=== PATIENT | male | born 1980 | race Caucasian/White ===

== ENCOUNTER 2023-11-11 18:41 | Emergency (ER) | payer OTHER, SELFPAY ==
[2023-11-11] VITALS (27 sets, daily range): BP systolic 96–170; BP diastolic 61–120; PULSE 66–86; RESP 3–27; TEMP 36.9; O2SAT 94–100; BMI 34.4
--- NOTE | 2023-11-11 18:52 | ED.CHESTPAI1 ---
HPI - Chest Pain General Chief Complaint: Chest Pain Stated Complaint: Chest Pain Time Seen by Provider: 11/11/23 18:48 Source: patient Mode of arrival: walk-in Limitations: no limitations History of Present Illness HPI narrative: This patient is here complaining of chest pain. He says it was worse on the ride to the hospital and not quite as bad now when I was interviewing him. It started around 230 3:00. He is known to have metabolic syndrome. He has never had heart attack or chest pain before. No history of heart catheterization or stress testing. He had some vomiting at home. He does not have any abdominal discomfort. He thought initially he had acid reflux but he has never had discomfort like this before. Does also have some aching in his right shoulder. No radiation of pain to his neck jaw or left arm. Patient was seen immediately on arrival by myself with EKG done. Related Data Allergies Allergy/AdvReac Type Severity Reaction Status Date / Time naproxen AdvReac Mild Verified 11/11/23 18:45 Exam Narrative Exam Narrative: Awake alert oriented x 3. vital Signs are stable he is afebrile. No respiratory distress, normal pulse oximetry. Heart rate 78. He states he has never had previous EKG. A stat EKG here shows possible injury pattern On auscultation I do not hear a heart murmur or S3 or gallop. On auscultation lungs are clear with no wheeze rales or rhonchi. Abdomen is soft and nontender with no symptoms. His extremities do not show any swelling or edema. Neurological examination normal cognition and mental status. Constitutional Vital Signs, click to edit/add: Last Vital Signs Temp 98.5 F 11/11/23 18:45 Pulse 83 11/11/23 18:45 Resp 20 11/11/23 18:45 Pulse Ox 97 11/11/23 18:45 O2 Del Method Room Air 11/11/23 18:45 Course Vital Signs Vital signs: Vital Signs Temperature 98.5 F 11/11/23 18:45 Pulse Rate 83 11/11/23 18:45 Respiratory Rate 20 11/11/23 18:45 Pulse Oximetry 97 11/11/23 18:45 Oxygen Delivery Method Room Air 11/11/23 18:45 Temperature 98.5 F 11/11/23 18:45 Pulse Rate 83 11/11/23 18:45 Respiratory Rate 20 03/26/24 18:45 Pulse Oximetry 97 11/11/23 18:45 Oxygen Delivery Method Room Air 11/11/23 18:45 MDM - Chest Pain MDM Narrative Medical decision making narrative: The patient was seen immediately on arrival. Because of the abnormalities on EKG he will be given aspirin and started on a heparin drip. The EKG was faxed by myself to the research affiliate at [facility]. Heart Score History: Highly Suspicious ECG: Sign. ST Depression Age: <45 years Risk Factors: >3 Risk Factors/ HX of CAD:2 Discharge Plan Discharge Chief Complaint: Chest Pain Clinical Impression: ST elevation (STEMI) myocardial infarction Patient Disposition: [facility] Time of Disposition Decision: 19:00 Mode of Transportation: EMS Print Language: [place] Island[place] Referrals: CHRISTA SPRAGUE [Primary Care Provider] - 1 week
--- NOTE | 2023-11-11 18:55 | XR_ITS ---
The [address] [address] Patient Name: THEE MELENDEZ MRN: [id number] date: 1980 Sex: M Assigned Patient Location: ER Current Patient Location: ED.MAIN Accession/Order Number: [id number] Exam Date: 11/11/2023 19:15 Report Date: 11/11/2023 19:55 At the request of: ANGELO MELÉNDEZ Procedure: XR chest 1V EXAM: XR chest 1V HISTORY: Chest pain COMPARISON: None. TECHNIQUE: AP upright chest x-ray. FINDINGS: Lungs are clear with out infiltrate or edema. Heart size borderline accentuated by magnification. No pleural effusion or pneumothorax. XR/XR chest 1V IMPRESSION: No acute findings, clear lungs. Cardiac silhouette accentuated by magnification. Electronically authenticated by: JO REYNAGA Date: 11/11/2023 19:55
--- NOTE | 2023-11-11 18:55 | ECG_ITS ---
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
[2023-11-11] MEDS: ASPIRIN 81 MG TAB.CHEW 162 MG PO (19:03)
[2023-11-11 19:05] LABS: Basophils Absolute Auto 0.1 10^3/uL (0.0-0.1); Basophils Percent Auto 0.7 % (0.2-2.0); Eosinophils Absolute Auto 0.2 10^3/uL (0.0-0.7); Eosinophils Percent Auto 2.5 % (0.9-7.0); Hematocrit 48.2 % (42.0-54.0); Hemoglobin 16.7 g/dL (14.0-18.0); Immature Granulocytes Abs Auto 0.02 10^3/uL (0.00-0.03); Immature Granulocytes Pct Auto 0.2 % (0.0-0.5); Lymphocytes Absolute Auto 4.7 10^3/uL (1.2-3.8); Lymphocytes Percent Auto 48.2 % (20.5-60.0); Mean Corpuscular HGB Conc 34.6 g/dL (29.9-35.2); Mean Corpuscular Hemoglobin 31.2 pg (25.9-34.0); Mean Corpuscular Volume 89.9 fL (80.0-94.0); Monocytes Absolute Auto 0.6 10^3/uL (0.3-0.8); Neutrophils Absolute Auto 4.1 10^3/uL (1.4-6.5); Neutrophils Percent Auto 42.4 % (43.0-75.0); Platelet Count 250 10^3/uL (150-450); Red Blood Count 5.36 10^6/uL (4.70-6.10); Red Cell Distribution Width 12.4 % (11.0-15.0); White Blood Count 9.7 10^3/uL (4.0-11.0)
[2023-11-11] MEDS: HEPARIN SODIUM,PORCINE/D5W 25,000 UNIT/500 ML IV.SOLN 20 UNIT IV (19:08)
[2023-11-11] MEDS: HEPARIN SODIUM (PORCINE) 5,000 UNIT/ML VIAL 4000 UNIT IV (19:08)
[2023-11-11 19:22] LABS: INR 0.96; Prothrombin Time 10.2 sec (9.0-11.6)
[2023-11-11 19:26] LABS: Anion Gap 14.3
[2023-11-11 19:33] LABS: Alanine Aminotransferase 20 U/L (16-63); Albumin Globulin Ratio 1.1; Albumin Level 3.9 g/dL (3.4-5.0); Alkaline Phosphatase 63 U/L (46-116); Aspartate Amino Transferase 17 U/L (15-37); BUN Creatinine Ratio 14.4; Bilirubin Total 0.3 mg/dL (0.2-1.0); Calcium 8.9 mg/dL (8.5-10.1); Carbon Dioxide 24.6 mmol/L (21.0-32.0); Chloride 98 mmol/L (98-107); Estimated GFR (African America >60 (>=60); Estimated GFR (Non-African Ame >60 (>=60); Globulin 3.4 g/dL; Glucose 247 mg/dL (74-106); Potassium 3.9 mmol/L (3.5-5.1); Sodium 133 mmol/L (136-145); Total Protein 7.3 g/dL (6.4-8.2)
--- NOTE | 2023-11-11 19:33 | ECG_ITS ---
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
[2023-11-11] MEDS: TICAGRELOR 90 MG TABLET 180 MG PO (19:43)
[2023-11-11] MEDS: MORPHINE SULFATE 4 MG/ML VIAL IV (19:45)
[2023-11-11] MEDS: NITROGLYCERIN IN 5 % DEXTROSE 50 MG/250 ML INFUS..BTL IV (19:50)
[2023-11-11] MEDS: 0.9 % SODIUM CHLORIDE 1,000 ML 250 ML IV (20:08)
--- NOTE | 2023-11-11 20:28 | ECG_ITS ---
The 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
[2023-11-11 20:51] LABS: Troponin I High Sensitivity 307.3 pg/mL (4.0-76.1)
--- NOTE | 2023-11-11 21:00 | ED.CHESTPAI1 ---
HPI - Chest Pain General Chief Complaint: Chest Pain Stated Complaint: Chest Pain Time Seen by Provider: 11/11/23 18:48 Source: patient Mode of arrival: walk-in Limitations: no limitations History of Present Illness HPI narrative: 43-year-old male presents to the emergency department for chest pain and was initially evaluated by Dr. Cook and signed out to me at change of shift after discussing the case with him thoroughly. Related Data Allergies Allergy/AdvReac Type Severity Reaction Status Date / Time naproxen AdvReac Mild Verified 11/11/23 18:45 Exam Constitutional Vital Signs, click to edit/add: Last Vital Signs Temp 98.5 F 11/11/23 18:45 Pulse 72 11/11/23 20:45 Resp 20 11/11/23 20:49 BP 101/61 11/11/23 20:45 Pulse Ox 94 L 11/11/23 20:45 O2 Del Method Room Air 11/11/23 18:45 Course Vital Signs Vital signs: Vital Signs Temperature 98.5 F 11/11/23 18:45 Pulse Rate 83 11/11/23 18:45 Respiratory Rate 20 11/11/23 18:45 Pulse Oximetry 97 11/11/23 18:45 Oxygen Delivery Method Room Air 11/11/23 18:45 Temperature 98.5 F 11/11/23 18:45 Pulse Rate 72 11/11/23 20:45 Respiratory Rate 20 11/11/23 20:49 Blood Pressure 101/61 11/11/23 20:45 Pulse Oximetry 94 L 11/11/23 20:45 Oxygen Delivery Method Room Air 11/11/23 18:45 MDM - Chest Pain MDM Narrative Medical decision making narrative: Initial EKGs showed some questionable changes in the septal area and leads I and aVL. Initial troponin came back negative and he was on heparin and had received Brilinta after discussing the case with Dr. Blackmon. Subsequently his pain got worse and we did another EKG which showed significant ST elevation. Cardiology was updated and they are taking him to the [facility] tonight. Findings are discussed with the patient and his family. He is hemodynamically stable and agreeable for transfer. Repeat troponin was elevated at over 300. He received aspirin and Brilinta and is on heparin drip as well as nitroglycerin drip. Differential Diagnosis Differential diagnosis: Likely fracture of rib, pneumothorax, unstable angina pectoris, atypical chest pain, st elevation myocardial infarction, costochondritis and chest pain Lab Data Attestation: I reviewed the patient's lab results. Labs: Lab Results 11/11/23 11/11/23 Range/Units 18:53 20:20 WBC 9.7 (4.0-11.0) 10^3/uL RBC 5.36 (4.70-6.10) 10^6/uL Hgb 16.7 (14.0-18.0) g/dL Hct 48.2 (42.0-54.0) % MCV 89.9 (80.0-94.0) fL MCH 31.2 (25.9-34.0) pg MCHC 34.6 (29.9-35.2) g/dL RDW 12.4 (11.0-15.0) % Plt Count 250 (150-450) 10^3/uL MPV 9.0 L (9.5-13.5) fL Neut % (Auto) 42.4 L (43.0-75.0) % Lymph % (Auto) 48.2 (20.5-60.0) % [place]ison % (Auto) 6.0 (1.7-12.0) % Eos % (Auto) 2.5 (0.9-7.0) % Baso % (Auto) 0.7 (0.2-2.0) % Neut # (Auto) 4.1 (1.4-6.5) 10^3/uL Lymph # (Auto) 4.7 H (1.2-3.8) 10^3/uL Addison # (Auto) 0.6 (0.3-0.8) 10^3/uL Eos # (Auto) 0.2 (0.0-0.7) 10^3/uL Baso # (Auto) 0.1 (0.0-0.1) 10^3/uL Abs Immat Gran (auto) 0.02 (0.00-0.03) 10^3/uL Imm/Tot Granulo (auto) 0.2 (0.0-0.5) % PT 10.2 (9.0-11.6) sec INR 0.96 Sodium 133 L (136-145) mmol/L Potassium 3.9 (3.5-5.1) mmol/L Chloride 98 (98-107) mmol/L Carbon Dioxide 24.6 (21.0-32.0) mmol/L Anion Gap 14.3 BUN 14.0 (7.0-18.0) mg/dL Creatinine 0.97 (0.70-1.30) mg/dL Est GFR ( Amer) >60 (>=60) Est GFR (Non-Af Amer) >60 (>=60) BUN/Creatinine Ratio 14.4 Glucose 247 H (74-106) mg/dL Calcium 8.9 (8.5-10.1) mg/dL Total Bilirubin 0.3 (0.2-1.0) mg/dL AST 17 (15-37) U/L ALT 20 (16-63) U/L Alkaline Phosphatase 63 (46-116) U/L Troponin I High Sens 17.0 307.3 H* (4.0-76.1) pg/mL NT-Pro-B Natriuret Pep 135.0 (<=450.0) pg/mL Total Protein 7.3 (6.4-8.2) g/dL Albumin 3.9 (3.4-5.0) g/dL Globulin 3.4 g/dL Albumin/Globulin Ratio 1.1 Imaging Data Chest x-ray: Radiologist's impression: ITS Impressions Chest X-Ray 11/11/23 18:55 IMPRESSION: No acute findings, clear lungs. Cardiac silhouette accentuated by magnification. Electronically authenticated by: JO REYNAGA Date: 11/11/2023 19:55 ECG Data Attestation: I personally reviewed and interpreted this ECG as follows: (Initial EKG is on my interpretation showed questionable ST elevation in leads V4 and V5 as well as 1 and aVL. The fourth EKG performed shows significant ST elevation in the same leads.) Critical Care Time Critical Care Time Critical Care Time: Yes Total Critical Care Time: 50 Attestation: Due to the high probability of sudden and clinically significant deterioration in the patient's condition he/she required the highest level of my preparedness to intervene urgently I provided critical care time including documentation time, medication orders and management, reevaluation, vital sign assessment, ordering and reviewing of lab tests, ordering and reviewing of x-ray studies, and admission orders. Aggregate critical care time is 50 minutes including only time during which I was engaged in work directly related to his/her care and did not include time spent treating other patients simultaneously. Discharge Plan Discharge Chief Complaint: Chest Pain Clinical Impression: ST elevation (STEMI) myocardial infarction Patient Disposition: [facility] Time of Disposition Decision: 19:00 Discharge Location: [facility] Condition: Fair Mode of Transportation: EMS
--- NOTE | 2023-11-11 21:56 | ECG_ITS ---
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
== END 2023-11-11 21:50 | disposition short-term general hospital (02) ==
PROVIDERS: Emergency Medicine Emergency Medical Services; Emergency Provider Emergency Medicine; PCP Family Medicine
DX: I21.4 Non-ST elevation (NSTEMI) myocardial infarction (principal); E88.810 Metabolic syndrome
CPT/HCPCS: 36415; 71045; 80053; 83880; 84484; 85025; 85610; 93005; 96365; 96375; 99285

== ENCOUNTER 2023-12-15 10:15 | Outpatient (RCR) | payer OTHER, SELFPAY | END 2024-01-29 15:33 | disposition home or self-care (01) | LOC: CR 10:15 | PROVIDERS: PCP Family Medicine; Visit Provider Internal Medicine Cardiovascular Disease | DX: I21.9 Acute myocardial infarction, unspecified (principal) ==